=== PATIENT | male | born 1945 | race Caucasian/White ===

== ENCOUNTER 2018-05-18 14:49 | Emergency (ER) | payer MEDICARE ==
[~2018-05-18] VITALS: Ht 177.8 cm; Wt 110.0 kg
[~2018-05-18 14:49] MED LIST: ASPIRIN ADULT L81 M2 PO; ATORVASTATIN CA40 MG PO; CIPROFLOXACN250 MG PO; DILAUDID 2MG2 MG/TA1 PO; MET12.5TAB PO; METFORMIN HCL750 MG PO; MULTIVITAMIN AD1 TA1 PO
[2018-05-18 15:38] LABS: HEMATOCRIT 39.8 % (39.0-50.0); HEMOGLOBIN 12.8 g/dl (14.0-18.0); IMMATURE GRANULOCYTES 0.6 % (0.0-5.0); MEAN CELL VOLUME 93.2 fL CALC (80.0-100.0); MEAN CORPUSCULAR HGB CONC 32.2 g/L CALC (32.0-36.0); NEUT# 6.22 thou/uL (1.82-7.42); RED BLOOD COUNT 4.27 mill/uL (4.70-6.10); RED CELL DISTRI WIDTH 12.8 % (11.5-15.5)
[2018-05-18 15:55] LABS: CREATININE 1.7 mg/dL (0.7-1.3); POTASSIUM 4.5 mmol/l (3.5-5.1)
[2018-05-18 20:05] VITALS: BP 134/73
== END 2018-05-18 20:08 | disposition short-term general hospital (02) ==
LOC: ED 14:49
PROVIDERS: Family Medicine
DX: R06.02 Shortness of breath (principal); R07.9 Chest pain, unspecified; I25.810 Atherosclerosis of coronary artery bypass graft(s) without angina pectoris; Z95.1 Presence of aortocoronary bypass graft; I10 Essential (primary) hypertension; Z98.890 Other specified postprocedural states; I48.0 Paroxysmal atrial fibrillation
CPT/HCPCS: J1644